=== PATIENT | female | born 1995 | race American Indian/Alaskan Native ===

== ENCOUNTER 2017-07-11 22:17 | Emergency (ER) | payer SELFPAY ==
--- NOTE | 2017-07-12 01:21 | ED PDOC ---
Arrival/HPI - General Chief Complaint: Allergic Reaction Time Seen by Provider: 07/11/17 23:15 Historian: Patient - History of Present Illness Narrative History of Present Illness (Text): 07/11/17 21-year-old female presents today with allergic reaction. Patient states that she used hair dye 3 days ago and woke up with erythematous pruritic rash along the scalp line of the forehead and around the ears and her eyebrows. Patient denies chest pain or shortness of breath. Denies fevers or chills. Denies dizziness or weakness. Patient states she took some Benadryl today and washed her hair multiple times. Patient states symptoms do not seem to be improving. Patient denies difficulty breathing or swallowing. Denies feeling of throat closing. Denies wheezing. No other complaints Symptom Onset: Sudden Symptom Course: Unchanged Quality: Burning Severity Level: 2 Past Medical History - Provider Review Nursing Documentation Reviewed: Yes - Travel History Have you recently traveled outside [place] w/in the past 3 mons?: No - Reproductive Menopause: No - Pulmonary Hx Asthma: Yes (as child) - Psychiatric Hx Substance Use: No - Anesthesia Hx Anesthesia: No Family/Social History - Physician Review Nursing Documentation Reviewed: Yes Family/Social History: Unknown Family HX Smoking Status: Unknown If Ever Smoked Hx Alcohol Use: No Hx Substance Use: No Allergies/Home Meds Allergies/Adverse Reactions: Allergies hair dye Allergy (Uncoded 07/11/17 22:46) RASH Home Medications: Home Meds Medication Instructions Recorded Confirmed Depo Shot 07/11/17 Review of Systems - Review of Systems Constitutional: absent: Fatigue, Fevers ENT: absent: Sore Throat, Sinus Congestion Respiratory: absent: SOB, Cough Cardiovascular: absent: Chest Pain Gastrointestinal: absent: Abdominal Pain, Nausea, Vomiting Genitourinary Female: absent: Dysuria Musculoskeletal: absent: Arthralgias Skin: Rash, Pruritis Neurological: absent: Headache, Dizziness Psychiatric: absent: Anxiety, Depression Physical Exam Vital Signs Reviewed: Yes Vital Signs Temp Pulse Resp BP Pulse Ox 07/12/17 01:00 98 F 80 19 125/68 98 07/11/17 23:52 88 18 123/66 97 07/11/17 22:38 100 F H 98 H 18 117/73 100 Temperature: Afebrile Blood Pressure: Normal Pulse: Regular Respiratory Rate: Normal Appearance: Positive for: Well-Appearing, Non-Toxic, Comfortable Pain Distress: None Mental Status: Positive for: Alert and Oriented X 3 - Systems Exam Head: Present: Atraumatic, Other (there are multiple erythematous papules along entire frontal scalp line extending to the scalp line posterior to the ears. ) Mouth: Present: Moist Mucous Membranes Pharnyx: Present: Normal Neck: Present: Normal Range of Motion Respiratory/Chest: Present: Clear to Auscultation, Good Air Exchange. No: Respiratory Distress, Accessory Muscle Use Cardiovascular: Present: Regular Rate and Rhythm, Normal S1, S2. No: Murmurs Abdomen: No: Tenderness, Distention, Rebound, Guarding Back: Present: Normal Inspection Upper Extremity: Present: Normal ROM Lower Extremity: Present: Normal ROM Neurological: Present: GCS=15, Speech Normal Skin: Present: Warm, Dry, Normal Color Psychiatric: Present: Alert, Oriented x 3 Medical Decision Making ED Course and Treatment: 07/12/17 02:59 Patient is nontoxic well-appearing in no distress with stable vital signs no angioedema. Lungs are clear to auscultation bilaterally there is no wheezing noted. The airway is patent benadryl 50mg pepcid; 20mg po prednisone 60mg po Patient reassessment: After medications patient is feeling much better the lungs are clear to auscultation bilaterally the airway is patent the patient is speaking in full sentences. rash is improving. I advised taking Benadryl every 6 hours as needed for itch as well as prednisone daily x4 days. Advised patient to follow up with primary care physician within the next 2 days and return if symptoms worsen persist or if new symptoms develop. Patient verbalizes understanding of discharge instructions and need for immediate followup. all aspects of this case were discussed the attending of record. Impression :Allergic reaction Benadryl every 6 hours as needed for itch Prednisone once daily x4 days Pepcid one tablet daily Follow up with the primary care physician tomorrow Follow up with the dial painter within the next 2 days. Return if symptoms worsen persist or if new symptoms develop: Shortness of breath, feeling of throat closing, difficulty speaking or any other concerning symptoms develop Reassessment Condition: Re-examined, Improved - Medication Orders Current Medication Orders: Discontinued Medications Diphenhydramine HCl (Benadryl) 50 mg PO ONCE ONE Stop: 07/11/17 23:16 Last Admin: 07/11/17 23:46 Dose: 50 mg Famotidine (Pepcid) 20 mg PO STAT STA Stop: 07/11/17 23:16 Last Admin: 07/11/17 23:46 Dose: 20 mg Prednisone (Prednisone Tab) 60 mg PO STAT ONE Stop: 07/11/17 23:16 Last Admin: 07/11/17 23:46 Dose: 60 mg Disposition/Present on Arrival - Present on Arrival Any Indicators Present on Arrival: No History of DVT/PE: No History of Uncontrolled Diabetes: No Urinary Catheter: No History of Decub. Ulcer: No History Surgical Site Infection Following: None - Disposition Have Diagnosis and Disposition been Completed?: Yes Diagnosis: Allergic reaction Disposition: HOME/ ROUTINE Disposition Time: :17 Patient Plan: Discharge Condition: GOOD Discharge Instructions (ExitCare): Adverse Drug Reactions, Adult (DC) Additional Instructions: Benadryl every 6 hours as needed for itch Prednisone once daily x4 days Pepcid one tablet daily Follow up with the primary care physician tomorrow Follow up with the dial painter within the next 2 days. Return if symptoms worsen persist or if new symptoms develop: Shortness of breath, feeling of throat closing, difficulty speaking or any other concerning symptoms develop Prescriptions: DiphenhydrAMINE [Benadryl] 25 mg PO Q6H #20 cap Famotidine [Pepcid] 20 mg PO DAILY #30 tab predniSONE [predniSONE Tab] 2 tab PO DAILY #8 tab Referrals: [facility] [place] - Follow up with primary Scarlett Camilo MD [Staff Provider] - Follow up with primary Leif Walls MD [Staff Provider] - Follow up with primary Forms: [employer] ([place]), WORK NOTE
[2017-07-12 01:40] VITALS: BP 125/68; PULSE 80; RESP 19; TEMP 98; O2SAT 98
== END 2017-07-12 01:40 | disposition home or self-care (01) ==
LOC: ED 22:17
DX: T78.40XA Allergy, unspecified, initial encounter (principal); X58.XXXA Exposure to other specified factors, initial encounter